=== PATIENT | female | born 1990 | race Caucasian/White ===

== ENCOUNTER 2025-04-15 16:36 | Emergency (ER) | payer BC, SELFPAY ==
--- OUTSIDE RECORDS SUMMARY | 2025-04-15 16:39 | XMS_ITS | Clinical Summary ---
Author Organization [facility] Address [address] [place] [address] Care Team Providers Care Rigger Chief Name Role Phone Elsewhere, Pcp Primary Care Provider Unavailabl e Source Comments Patient records contain information from all sites at [facility]. For routine questions regarding patient records, call [phone] during business hours, M-F 8:00 AM - 5:00 PM Central Time. Record requests for emergency care only can be directed to [phone] at any time.[facility] Allergies Active Allergy Reactions Criticality Noted Date Comments Adhesive Rash 12/22/2010 Latex Itching 03/10/2015 Medications * This document contains information received from the source organization and may not represent a complete record from that organization. naproxen sodium (ALEVE/ANAPROX) 550 mg tabletIndications: Dysmenorrhea Take 1 tablet (550 mg total) by mouth 2 (two) times a day as needed for pain. Take with food. 30 tablet 3 1 Active ibuprofen (MOTRIN) 600 mg tablet Take 600 mg by mouth 3 (three) times a day as needed. 1 Active ondansetron ODT (ZOFRAN-ODT) 4 mg disintegrating tablet Dissolve 8 mg in the mouth every 8 (eight) hours as needed. 1 Active oxyCODONE (ROXICODONE) 5 mg immediate release tablet Take 5 mg by mouth every 6 (six) hours as needed. 1 Active buPROPion XL (WELLBUTRIN XL) 150 mg 24 hr tablet Take 1 tablet (150 mg total) by mouth every morning. 90 tablet 3 4 Active albuterol 90 mcg/actuation inhaler Inhale 2 puffs every 6 (six) hours as needed for wheezing or shortness of breath. 8 g 3 4 Active lamoTRIgine (LaMICtal) 25 mg chewable tablet Take 1 tablet (25 mg total) by mouth daily. 30 tablet 4 Active dextroamphetamine- amphetamine (AdderalL) 10 mg tablet Take 1 tablet (10 mg total) by mouth daily. 30 tablet 4 Active cloNIDine (CATAPRES) 0.2 mg tablet Take 1 tablet (0.2 mg total) by mouth daily. 30 tablet 4 Active ARIPiprazole (Abilify) 2 mg tablet Take 1 tablet (2 mg total) by mouth daily. 30 tablet 4 Active Active Problems Problem Noted Date Diagnosed Date Syphilis 09/21/2023 Overview (09/21/2023): Records from [facility]: 08-11-2015 TP-PA 1:64 with rash on abdomen. 08-18-2015 PCN G 2.4 million units IM administered. Preventive Gynecological Exam 09/16/2023 Overview (09/16/2023): Pap smear: 07/23/2019 NILM/-HPV. Gonorrhea/Chlamydia Screen: Mammogram: Start at age 40. Lipid panel: 09/16/2023 obtained and pending. Diabetic screenin09/16/2023 obtained and pending. Colon screening: Begin at age 45. DEXA Scan: Begin at age 65. HPV Vaccine: Declined. Tdap Vaccine: 09/16/2023. Influenza Vaccine: Declined. - Discussed the importance of healthy diet and exercise for overall well-being. - Recommend at least 30 minutes of aerobic exercise most days of the week. - Recommend 1200 mg of calcium daily. Assessment & Plan (09/16/2023 3:11 PM STATOR WINDER): Discussed exam findings with patient. Tdap updated today. I will plan to send her a portal message with Pap and lab results. Recommend she return in 1 year for her annual preventative health exam or sooner if she is any concerns or problems. Cancer Breast Family History 10/13/2020 Overview (09/16/2023): Mom was diagnosed with breast cancer at age 39. Her Tyrer-Cuzick lifetime risk score is 20.2%. She is interested in referral to the breast Clinic to discuss genetic testing and recommended screening protocol. Galactorrhea Not Associated With Childbirth 09/23 Overview (09/16/2023): In 2018 she had normal bilateral diagnostic mammogram and ultrasound of the breast. No follow-up since. Continues to experience galactorrhea. She is very concerned as there is family history of breast cancer in her mom at age 39. Prolactin was mildly elevated in 2018, with normal prolactin level in 2019. No other lab abnormalities or cause was concluded for her likely physiologic galactorrhea. Reassured that clinical breast exam findings are normal today. Tobacco Abuse Counseling 10/13/2020 Overview (10/13/2020): Currently smoking approximately half pack per day. Tried Chantix in the past for 1 month, and did not find it helpful, but did experience vivid nightmares. Has tried nicotine patches in the past, but has allergy to adhesives. Has tried nicotine gum in the past, but can not tolerate the taste. Is on Wellbutrin, and has not found that to be helpful. Would like to try the nicotine inhaler. Prescription faxed to her pharmacy. Dysmenorrhea 10/13/2020 Overview (10/13/2020): Has been managing effectively with Mirena IUD. Due to potential side effect of decreased libido, she requested Mirena IUD removal today. I did provide her a prescription for naproxen to use as needed for menstrual pain. She will follow up as needed, or in 1 year for annual preventative health exam. Tobacco Use 07/24/2020 [facility] 07/24/2020 Migraine Headache 01/23/2018 Depression Anxiety 01/05/2017 Overview (09/16/2023): PHQ-9 score of 14 today. She is scheduled to see her therapist on September 26. Wellbutrin prescription was renewed today. She will see her psychiatrist to get the Abilify renewed if still appropriate. Stone Kidney 06/26/2014 Overview (09/12/2023): Overview: ureter stent placed fall: Massimo, awaiting removal ureter stent placed fall: Massimo, awaiting removal [facility] Personal History 10/28/2011 Resolved Problems Problem Noted Date Diagnosed Date Resolved Date Depressed Libido 10/13/2020 09/16/2023 Overview (10/13/2020): Notes that her decreased libido is affecting her relationship with her partner. She is concerned that her Mirena IUD may be affecting her libido. She is using her IUD for management of her dysmenorrhea. She has decided she would like to have the IUD removed to see if her libido improves. She has undergone tubal ligation, and therefore does not need contraception. If she does not experience improvement in her libido in the next 2-3 months, she may consider reinsertion of her IUD. She would potentially be interested in referral to the [facility] for further evaluation and management of her depressed libido. 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 Overview (01/11/2017): Deficiency Protein S Pyeloplasty Status Post 12/25/201410/2019 Urolithiasis 05/13/2014 07/24/2020 Atypical Squamous Cells Unde termined Significance Cervix 11/20/2010 01/23/2018 Overview (08/25/2017): Overview: Plan: Routine Screening Atypical Squamous Cells Unde termined Significance Cervix 11/20/2010 09/16/2023 Overview (07/24/2020): 03/16/10, 11/201012/26/10 [place]:negative (age 20) 06/11/16 NIL/HPV negative 01/05/17 NIL 07/23/19 NIL Plan: Routine Screening Immunizations Immunization Administration Dates Next Due DTP 04/01/1994, 0,02/07/1989,1988,1988 HepB Pediatric/Adolescent 03/03/1998 Influenza TIV (IM) 06/12/2012,06/08/2010 Influenza, Injectable, Quadrivalent 08/11/2015,1 08/25/2013 Influenza, Seasonal, Injectable 06/12/2012,06/08 Influenza, Unspecified 08/02/2019,06/12/2012 Polio, Unspecified 04/01/1994, 0,1988,1988 Tdap 09/16/2023,06/12/2012,12/22/2010 influenza vaccine quad (FLUZONE/FLUARIX) (6 months and older)(PF) 08/11/2020,08/02/2019,08/11/2015,2013 Family History Medical History Relation Name Comments No Known Problems Brother Adopted Daughter 1 Adpoted Out Anxiety disorder Daughter 2 Taralyn Depression Daughter 2 Taralyn No Known Problems Daughter 3 Dorcas Diabetes Father Heart disease Father Kidney disease Father Stroke Father Lung cancer Maternal Grandfather Cancer Maternal Grandmother Anxiety disorder Mother Breast cancer Mother Depression Mother Drug abuse Mother sober 2-3 years Prostate cancer Paternal Grandfather No Known Problems Sister ODD Son Caleb PTSD Son Caleb Relation Name Status Comments Brother Alive Daughter 1 Alive Daughter 2 Taralyn Alive Daughter 3 Dorcas Alive Father Alive Maternal Grandfather Maternal Grandmother Mother Alive Paternal Grandfather Alive Paternal Grandmother Alive Sister Alive Son Caleb Alive Social History Tobacco Use Types Packs/Day Years Used Date Smoking Tobacco: Every Day Cigarettes Smokeless Tobacco: Never Tobacco Cessation:Ready to Q uit: Not Asked; Counseling Given: Not Answered Comments:Trying to quit Alcohol Use Standard Drinks/Week Comments Yes 2 (1 standard drink = 0.6 oz pur e alcohol) Social Consumption Humiliation, Afraid, Rape, and Kick questionnair e Answer Date Recorded Within the last year, have y ou been afraid of your partner or ex-partner? No 07/24/2020 Within the last year, have y ou been humiliated or emotionally abused in other ways by your partner or ex-partner? No Within the last year, have y ou been kicked, hit, slapped, or otherwise physically hurt by your partner or ex-partner? No 07/24/2020 Within the last year, have y ou been raped or forced to have any kind of sexual activity by your partner or ex-partner? No 07/24/2020 Hunger Vital Sign Answer Date Recorded Within the past 12 months, y ou worried that your food would run out before you got the money to buy more. Never true 07/24/20 20 Within the past 12 months, t he food you bought just didn't last and you didn't have money to get more. Never true 07/24/2020 PRAPARE - Transportation Answer Date Re corded In the past 12 months, has l ack of transportation kept you from medical appointments or from getting medications? No 10/2019 In the past 12 months, has l ack of transportation kept you from meetings, work, or from getting things needed for daily living? No 07/24/2020 Depression Answer Date Recor ded PHQ-9 Total Score (max 27) 14 09/16 Education Answer Date Recorded What is the highest level of school you have completed or the highest degree you have received? 11th grade 07/24/2020 Comments No Sex and Gender Information Value Date Recorded Sex Assigned at Female 08/25/2017 8:44 AM STATOR WINDER Legal Sex Female 7:46 PM STATOR WINDER Gender Identity Female 08/25/2017 8:44 AM STATOR WINDER Sexual Orientation Bisexual 08/25/2017 8: 44 AM STATOR WINDER Occupation Industry Job Start Date Job End Date Housekeeping Not on file Not on file Not on file Last Filed Vital Signs Vital Sign Reading Time Taken Comments Blood Pressure 140/80 09/16/2023 2:02 PM STATOR WINDER Pulse 64 07/24/2020 11:00 AM STATOR WINDER Temperature 36 C (96.8 F) 07/24/2020 11:00 AM STATOR WINDER Respiratory Rate 16 01/23/2018 10:48 AM CDT Oxygen Saturation - - Inhaled Oxygen Concentration - - Weight 82.3 kg (181 lb 7 oz) 09/16/2023 2:02 PM STATOR WINDER Height 163 cm (5' 4.17) 09/16/2023 2:02 PM STATOR WINDER Body Mass Index 30.98 09/16/2023 2:02 PM STATOR WINDER Plan of Treatment Health Maintenance Due Date Last Done Comments Tobacco Cessation counseling 1988 Hepatitis B Vaccines (2 of 3 - 3-dose series) 03/31/1998 03/03/1998 Pneumococcal vaccine (0-49 y ears) (1 of 2 - PCV) 2007 HPV Vaccines (1 - 3-dose SCD M series) 2015 COVID-19 Vaccine (3 - 2023-2 5 season) 2024 02/02/2021, 01/12/2021 Depression Screening (Annual PHQ-2) 08/22/2024 Glucose Test for Med Monitoring 09/16/2024 09/16/2023, 09/16/2023, 04/27/2023, Additional history exists Influenza Vaccine (#1) 2025 , 08/02/2019, 08/02/2019, Additional history exists Cervical/Vaginal Cancer Screening 09/16/2028 09/16/2023, 09/16/2023, 07/23/2019, Additional history exists Lipid (Cholesterol) Screening 09/16/2028 09/16/2023, 02/01/2018 DTaP,Tdap,and Td Vaccines (9 - Td or Tdap) 09/16/2033 09/16/2023, 06/12/2012, 12/22/2010, Additional history exists IPV Vaccines Completed 04/01/1994, 02/19, 1988, Additional history exists HIV Screening Completed 09/16/2023, 12/20, 05/31/2012 Medical Devices Implanted Type Area [employer]ale [employer] Device Identifier Shelf Expiration Date Model / Serial / Lot Stent Inlay 7fr X 24cm - Shrestha [id number] Implanted:Qty: 1 on 05/14/2014 Ureteral Stent C.R.Bard Description:Device Manufactu [facility] - [facility] Patient Care Division. Device Status Text - [id number]. Stent Inlay 8fr X 24cm - Shrestha [id number] Implanted:Qty: 1 on 08/18/2014 Ureteral Stent C.R.Bard Description:Device Manufactu rer - [employer] Patient Care Division. Device Status Text - [id number]. [facility] Data - [id number]. Stent Uret Dbl. J 7 X 26 - Shrestha [id number] Implanted:Qty: 1 on 12/09/2014 Ureteral Stent Other/Legacy - See Implant Description Description:Device Manufactu rer - [employer]. Device Status Text - [id number]. Explanted Type Area Shale Miner Blasting Device Identifier Shelf Expiration Date Model / Serial / Lot Intrauterine Device- 7 Implanted:01/12 (Quantity not on file) Explanted:Qty: 1 on 10/13/2020 by Umm Gibbs APRN C.N.PLori Intrauterine Device Uterus Description:Mirena IUD remov ed due to depressed libido. Conversions - Default Historical Implant Device - Shrestha [id number] Explanted:12/06 (Quantity not on file) Ureteral Stent Description:Device Status Te xt - [id number]. Conversions - Default Historical Implant Device - Shrestha [id number] Explanted:12/06 (Quantity not on file) Ureteral Stent Description:Device Status Te xt - [id number]. Procedures Procedure Name Priority Date/Time Associated Diagnosis Comments HIV-1/-2 AG AND AB SCREEN, PLASMA Routine 09/16/2023 3:35 PM STATOR WINDER Preventive Gynecological Exam LIPID PANEL, S Routine 09/16/2023 3:35 PM STATOR WINDER Preventive Gynecological Exam HEMOGLOBIN A1C, B Routine 09/16/2023 3:3 5 PM STATOR WINDER Preventive Gynecological Exam HPV WITH GENOTYPING, PCR, THINPREP Routine 09/16/2023 2:49 PM STATOR WINDER from Last 3 Months or Most Recently Relevant to Health Maintenance Results * HIV-1/-2 Ag and Ab Screen, Plasma (09/16/2023 3:35 PM STATOR WINDER) HIV Ag/Ab Screen, P Negative Negative 09/19/2023 9:30 PM STATOR WINDER [facility] Comment: Negative result does not rule out HIV infection. If exposure to HIV infection occurred <14 days ago, contact the laboratory to request addition of HIV-1/HIV-2 RNA detection, Plasma (HIP12). HIV-1 p24 Ag Screen, P Negative Negative 09/19/2023 9:30 PM STATOR WINDER [facility] Comment: Negative result does not rule out HIV infection. If exposure to HIV infection occurred <14 days ago, contact the laboratory to request addition of HIV-1/HIV-2 RNA detection, Plasma (HIP12). HIV-1 Ab Screen, P Negative Negative 09/19/2023 9:30 PM STATOR WINDER [facility] Comment: Negative result does not rule out HIV infection. If exposure to HIV infection occurred <14 days ago, contact the laboratory to request addition of HIV-1/HIV-2 RNA detection, Plasma (HIP12). HIV-2 Ab Screen, P Negative Negative 09/19/2023 9:30 PM STATOR WINDER [facility] Comment: Negative result does not rule out HIV infection. If exposure to HIV infection occurred <14 days ago, contact the laboratory to request addition of HIV-1/HIV-2 RNA detection, Plasma (HIP12). Blood (Blood, Venous) 09/16/2023 3:35 PM STATOR WINDER 09/17/2023 5:30 PM STATOR WINDER Umm Gibbs APRN, C.N.P. LAB MICROBIOLOGY - BLOOD ORDERABLES Final Result [facility] [address] [place] [id number], [facility] [place] [address] * Lipid Panel (09/16/2023 3:35 PM STATOR WINDER) Triglycerides 49 mg/dL 09/16/2023 6:34 PM STATOR WINDER OWAT Comment: ----REFERENCE VALUE---- Normal: <150 mg/dL Borderline High: 150-199 mg/dL High: 200-499 mg/dL Very High: > or =500 mg/dL Cholesterol, Total 139 mg/dL 2023 6:34 PM STATOR WINDER OWAT Comment: ----REFERENCE VALUE---- Desirable: < 200 mg/dL Borderline High: 200 - 239 mg/dL High: > or = 240 mg/dL Cholesterol, LDL, Calculated 65 mg/dL 09/16/2023 6:34 PM STATOR WINDER OWAT Comment: ----REFERENCE VALUE---- Desirable: <100 mg/dL Above Desirable: 100-129 mg/dL Borderline High: 130-159 mg/dL High: 160-189 mg/dL Very High: >=190 mg/dL ----ADDITIONAL INFORMATION---- LDL cholesterol calculated using the Craig/NIH equation. Cholesterol, HDL 63 >=50 mg/dL 09/16/19 6:34 PM STATOR WINDER OWAT Cholesterol, Non-HDL, Calculated 76 mg/dL 09/16/2023 6:34 PM STATOR WINDER OWAT Comment: ----REFERENCE VALUE---- Desirable: <130 mg/dL Above Desirable: 130-159 mg/dL Borderline High: 160-189 mg/dL High: 190-219 mg/dL Very High: > or =220 mg/dL Fasting (8 HR or more) Yes 09/16/2023 5:42 PM STATOR WINDER OWAT Blood (Blood, Venous) 09/16/2023 3:35 PM STATOR WINDER 09/16/2023 5:42 PM STATOR WINDER us Umm Gibbs APRN, C.N.P. LAB BLOOD ADD-ON Final Result Performing Organization Address City/[facility]/ZIP Co de Phone Number [facility] [address] [place] [address], [place] AT [facility] [place] [address] [place] [address] * Hemoglobin A1c (09/16/2023 3:35 PM STATOR WINDER) Hemoglobin A1c, B 5.0 4.2 - 5.6 % 09/16/2023 6:34 PM STATOR WINDER OWAT Blood (Blood, Venous) 09/16/2023 3:35 PM STATOR WINDER 09/16/2023 5:42 PM STATOR WINDER us Umm Gibbs APRN, C.N.P. LAB BLOOD ADD-ON Final Result Performing Organization Address City/[facility]/ZIP Co de Phone Number [facility] [address] [place] [address], [place] OW[place] [facility] [place] [address] [place] [address] * HPV with Genotyping, PCR, ThinPrep (09/16/2023 2:49 PM STATOR WINDER) HPV with Genotyping, ThinPrep, PCR Negative Negative 09/19/2023 4:40 PM STATOR WINDER [facility] Comment: Negative for high risk HPV by nucleic acid amplification. The following high risk HPV types were not detected: 16, 18, 31, 33, 35, 39, 45, 51, 52, 56, 58, 59, 66, and 68 This result does not rule out HPV in the patient, as the sensitivity of the test depends on the timing of the specimen collection and the quality of the specimen. Result should be correlated with patient's history, clinical presentation, and EDUCATION DIAGNOSTICIAN cytology report. 09/16/2023 2:49 PM STATOR WINDER 09/19/2023 7:08 AM STATOR WINDER us Umm Gibbs APRN CLoriNLoriP. LAB MICROBIOLOGY - GENERAL ORDERABLES Final Result [facility] [address] [id number], [facility] [address] [id number] from Last 3 Months or Most Recently Relevant to Health Maintenance Insurance [facility] [place] [phone] Care Teams Rigger Chief Relationship Specialty Start Date End Date Elsewhere, Pcp PCP - General Family Medicine 07/24/20
[2025-04-15 16:40] VITALS: BP 143/89; PULSE 92; RESP 20; TEMP 36.8; O2SAT 98; BMI 34.1
--- NOTE | 2025-04-15 17:34 | ED.NURSE ---
Attempted to place pt in room. Pt nowhere to be found. ED registration did not report seeing pt leave.
--- OUTSIDE RECORDS SUMMARY | 2025-04-16 18:45 | XMS_ITS | Clinical Summary ---
Author Organization [employer] [facility] Address [address] [place] [address] Care Team Providers Care Range Conservationist Name Role Phone [facility], [employer] [facility] v[facility] Allergies Active Allergy Reactions Criticality Noted Date Comments Adhesive Rash 12/22/2010 Latex Itching 03/10/2015 Medications albuterol HFA (PRO-AIR) 90 mcg/actuation inhalerIndicatio ns:SOB (shortness of breath) Inhale 1-2 Puffs by mouth every 4 hours if needed. 1 Each 3 0 Active ibuprofen (ADVIL; MOTRIN) 600 mg tabletIndication s:Right flank pain Take 1 Tablet (600 mg) by mouth 3 times daily if needed for Pain. Maximum of 3200 mg in 24 hours. 20 Tablet 1 Active ARIPiprazole (ABILIFY) 2 mg tablet Take 2 mg by mouth. 4 Active buPROPion (WELLBUTRIN XL) 150 mg Extended-Release tablet Take 150 mg by mouth. 4 Active cloNIDine HCL (CATAPRES) 0.2 mg tablet Take 0.2 mg by mouth. 4 Active dextroamphetamin e-amphetamine (ADDERALL) 10 mg tablet Take 10 mg by mouth. 4 Active lamoTRIgine (LAMICTAL FOR SUSP) 25 mg chewable dispersible tablet Take 25 mg by mouth. 4 Active metroNIDAZOLE (FLAGYL) 500 mg tablet TAKE ONE TABLET BY MOUTH TWICE A DAY FOR 7 DAYS DO NOT CONSUME ALCOHOL WHILE TAKING THIS MEDICATION 4 Active famotidine (PEPCID) 20 mg tabletIndication s:Gastroesophage al reflux disease, unspecified whether esophagitis present Take 1 Tablet (20 mg) by mouth two times daily. 60 Tablet 4 Active Active Problems Problem Noted Date Diagnosed Date Anxiety 12/03/2014 Rectal bleeding 07/07/2014 Pain medication agreement 06/26/2014 Overview (07/31/2014): Violated 7:04 PM Jul 31 2014. Pt given letter in ER regarding chronic pain policy . Pt will need to see PCP for pain control. 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 13 Overview (01/29/2013): following post- gallbladder surgery ASCUS with positive high risk HPV cervical 11/20 Overview (08/03/2019): 03/16/10, 11/201012/26/10 [place]:negative (age 20) 06/11/16 NIL/HPV negative 01/05/17 NIL 07/23/19 NIL Plan: Routine Screening Attention deficit disorder without mention of hy peractivity 07/20/2006 Protein S deficiency Resolved Problems Problem Noted Date Diagnosed Date Resolved Date Other pulmonary embolism and infarction 12/07/2012 12/19/2012 Anticoagulation monitoring, INR range 2-3 12/07/2012 01/29/2013 Immunizations Immunization Administration Dates Next Due DTP 04/01/1994, 0,02/07/1989,1988,1988 Hepatitis B (Peds) 03/03/1998 Influenza, IIV3 (Age >=3 years) 06/12/2012,06/08 Influenza, IIV4 08/02/2019,08/11/2015,06/25/2014 MMR 12/07/2012,03/03/1998,03/01/1990 Oral Polio Vaccine 04/01/1994, 0,1988,1988 Pneumococcal Poly,23-Valent (Pneumovax) 02/26/2011 Tdap 06/12/2012,12/22/2010 Family History Medical History Relation Name Comments Diabetes Father Stroke Father Cancer Maternal Grandfather Other Mother MS Diabetes Other 1 AUNT Cancer Other 2 LYMPHOMA GRANMO THER Cancer-prostate Other 3 GRANDFATHER Cancer Paternal Grandfather Relation Name Status Comments Brother Alive Daughter 1 Alive Daughter 2 Alive Daughter 3 Alive Father Alive Maternal Grandfather Maternal Grandmother Mother Alive Other 1 Other 2 Other 3 Paternal Grandfather Alive Paternal Grandmother Alive Sister Alive Son Alive Social History Tobacco Use Types Packs/Day Years Used Date Smoking Tobacco: Every Day Cigarettes Smokeless Tobacco: Never Tobacco Cessation:Ready to Q uit: Yes; Counseling Given: Yes Comments:also used e cig Alcohol Use Standard Drinks/Week Comments Yes 0 (1 standard drink = 0.6 oz pur e alcohol) Wine. 0-2 per month PHQ-2 Answer Date Recorded PHQ-2 TOTAL SCORE 0 08/04/2020 Social Connections Answer Date Recorded Frequency of Communication with Friends and Fami ly Not on file 08/22/2021 Financial Resource Strain Answer Date R ecorded Difficulty of Paying Living Expenses Not on file 08/22/2021 Difficulty of Paying Living Expenses Not on file 08/22/2021 Interpersonal Safety Answer Date Record ed Are you being hit, kicked, p ushed or yelled at (see row info)? No 07/23/2024 Interpersonal Safety Abuse 12 - 18 Not on file 07/23/2024 Interpersonal Safety Ambulatory Vulnerability No t on file 07/23/2024 Comments No Sex and Gender Information Value Date Recorded Sex Assigned at Not on file Legal Sex Female 5:23 AM BUILD AND RELEASE MANAGER Gender Identity Not on file Sexual Orientation Not on file Occupation Industry Job Start Date Job End Date home Not on file Not on file Not on file Obstetrics History Para Term AB IAB SAB Ectopic Multiple Livin g Live Births 5 4 4 1 1 4 1 Date Outcome GA Total Labor Labor/2nd/3rd Weight Sex Type Anes PTL Merly A1 A5 Name Clin Term Comments:System Genera yong. Please review and update details. Term Comments:System Genera yong. Please review and update details. SAB 006 Term 40w 0d 6h 00m/ 2.86 kg (6 lb 5 oz) F Vag Livin g tiff 008 Term 40w 0d 3.18 kg (7 lb) F Vag Comments:mild PIH Last Filed Vital Signs Vital Sign Reading Time Taken Comments Blood Pressure 115/55 07/23/2024 1:30 AM BUILD AND RELEASE MANAGER Pulse 91 07/23/2024 1:30 AM BUILD AND RELEASE MANAGER Temperature 36.6 C (97.8 F) 07/23/2024 12:08 AM BUILD AND RELEASE MANAGER Respiratory Rate 23 07/23/2024 12:45 AM BUILD AND RELEASE MANAGER Oxygen Saturation 98% 07/23/2024 1:30 AM BUILD AND RELEASE MANAGER Inhaled Oxygen Concentration - - Weight 100.2 kg (221 lb) 07/23/2024 12:08 AM BUILD AND RELEASE MANAGER Height 162.6 cm (5' 4) 07/23/2024 12:08 AM BUILD AND RELEASE MANAGER Body Mass Index 37.93 07/23/2024 12:08 AM BUILD AND RELEASE MANAGER Plan of Treatment Health Maintenance Due Date Last Done Comments Hepatitis B series for 19+ ( 2 of 3 - 3-dose series) 03/31/1998 03/03/1998 Hepatitis C screening for ag e 18-79 2006 Pneumococcal series for age 6-49 (2 of 2 - PCV) 02/27/2012 02/26/2011 BMI (ht and wt on same day) for age 18+ 08/04/2021 08/04/2020, 08/02/2019, 07/22/2019, Additional history exists Depression screening for age 12+ 08/04/2021 08/04/2020, 08/02/2019, 08/02/2019, Additional history exists Tetanus booster 06/12/2022 06/12/2012, 12/22/2010 Pap test for age 21-65 07/23/2022 9, 06/21/2016, 06/21/2016, Additional history exists COVID-19 vaccine series ( season) 2024 02/02/2021, 01/12/2021 Influenza Vaccine (#1) 2025 9, 08/11/2015, 06/25/2014, Additional history exists HIV for age 15-65 Completed 08/11/2015, 03/03/2007 Medical Devices Implanted Type Area [employer] Device Identifier Shelf Expiration Date Model / Serial / Lot Stent Contour [id number] Uret - [id number] Implanted:Qty: 1 on 01/29/2014 by Gabe Blood MD at [facility] Right: [facility] [facility] [place] [facility] 10/20/2016 [id number] / / [id number] Procedures Procedure Name Priority Date/Time Associated Diagnosis Comments MANAGEMENT AND BUDGET ANALYST THIN PREP PAP SCREEN IMAGED Routine 07/23/2019 8:40 AM BUILD AND RELEASE MANAGER Screening for malignant neoplasm of cervix ANTI HIV 1/2 Routine 08/11/2015 11:47 AM BUILD AND RELEASE MANAGER Routine screening for STI (sexually transmitted infection) from Last 3 Months or Most Recently Relevant to Health Maintenance Results * MANAGEMENT AND BUDGET ANALYST THIN PREP PAP SCREEN IMAGED (07/23/2019 8:40 AM BUILD AND RELEASE MANAGER) Case Report Gynecologic Cytology Report Case: [id number] Authorizing Provider: Charlene Washington PA Collected: 07/23/2019 0840 Ordering Location: [facility] Received: 07/23/2019 1015 Clinic First Screen: Maxi Diaz Rescreen: Sylwia Lantigua Specimen: MANAGEMENT AND BUDGET ANALYST ThinPrep Vial Screening, Cervical 08/02/2019 10:17 AM BUILD AND RELEASE MANAGER [facility] INTERPRETATION/ RESULT NEGATIVE FOR INTRAEPITHELIAL LESION OR MALIGNANCY (NIL) (none) 08/02/2019 10:17 AM BUILD AND RELEASE MANAGER [facility] at 1017 BUILD AND RELEASE MANAGER SPECIMEN ADEQUACY Satisfactory for evaluation Endocervical component present 08/02/2019 10:17 AM BUILD AND RELEASE MANAGER [facility] HPV REQUEST HPV if ASCUS 08/02/2019 10:17 AM BUILD AND RELEASE MANAGER [facility] Date of LMP 2 months ago. 08/02/2019 10:17 AM BUILD AND RELEASE MANAGER [facility] Last Pap Date 06/21/16 08/02/2019 10:17 AM BUILD AND RELEASE MANAGER [facility] Last Pap Result NIL 9 10:17 AM BUILD AND RELEASE MANAGER [facility] Abnormal Pap or [place] Bx in last 5 years Yes 08/02/2019 10:17 AM [facility] Menstrual Status Irregular Periods 08/02/2019 10:17 AM [facility] [place] Bx Done Today No 08/02/2019 10:17 AM [facility] Additional Information None given 08/02/2019 10:17 AM [facility] Automated Review Successful 08/02/2019 10:17 AM [facility] Comment:Specimen processed s uccessfully by automated baker device, ThinPrep Imaging System, [employer] Note The pap test is a screening technique, not a diagnostic procedure. It is used primarily to screen for squamous cancers and precursor lesions. Published studies have shown that it is subject to both false negative and false positive results. The pap test should not be used as the sole means to diagnose or exclude pre-malignant and malignant lesions. Cytology is screened and interpreted at [facility] - [address], [place] [address] and [facility] - [address]; [place] [address] and [facility] - [address]; [place] [address] and [facility] [address]; [place] [address] 08/02/2019 10:17 AM [facility] Other (Cervical) Non-Blood / Unknown 07/23/2019 8:40 AM BUILD AND RELEASE MANAGER 07/23/2019 10:15 AM BUILD AND RELEASE MANAGER Comment:Patient unaware of d ate of period due to IUD us Charlene DUNCAN PATHOLOGY/CYTOLOGY Final R esult [facility] [address] [place] [address], * ANTI HIV 1/2 (08/11/2015 11:47 AM BUILD AND RELEASE MANAGER) HIV-1/HIV-2 ANTIBODY Non-Reacti ve Non-Reacti ve 08/11/2015 8:[address] [facility] Blood specimen (specimen) BLOOD SPECIMEN / Unknown Venipuncture / Unknown 08/11/2015 11:47 AM BUILD AND RELEASE MANAGER 08/11/2015 11:47 AM BUILD AND RELEASE MANAGER Narrative [facility] - 08/11/2015 8:11 PM BUILD AND RELEASE MANAGER HIV-1 p24 and HIV-1/HIV-2 Ab not detected us Charlene Porter MD SEND OUTS Final Re sult [facility] [address] [place] [address], [place] from Last 3 Months or Most Recently Relevant to Health Maintenance Insurance [place] [address] [place] [address] [facility] [place] [id number] [place] [id number] [place] [employer] DEPT [id number] [facility] Advance Directives * Full Code (Latest Code Status on File) Date Activated Date Inactivated Comments 01/29/2014 9:04 AM 01/29/2014 5:11 PM Care Teams Range Conservationist Relationship Specialty Start Date End Date Clinic, [facility] [address] [facility] [place] [address] PCP - General 04/10/21
--- OUTSIDE RECORDS SUMMARY | 2025-04-16 18:45 | XMS_ITS | Clinical Summary ---
Author Organization [facility] Address [address] [place] [address] Care Team Providers Care Security Manager Name Role Phone Elsewhere, Pcp Primary Care Provider Unavailabl e Source Comments Patient records contain information from all sites at [facility]. For routine questions regarding patient records, call [phone] during business hours, M-F 8:00 AM - 5:00 PM Central Time. Record requests for emergency care only can be directed to [phone] at any time.[facility] Allergies Active Allergy Reactions Criticality Noted [...] Date Syphilis 09/21/2023 Overview (09/21/2023): Records from [facility]: 08-11-2015 TP-PA 1:64 with rash on abdomen. [...] daily. Assessment & Plan (09/16/2023 3:11 PM WATER INSPECTOR): Discussed exam findings with patient. Tdap updated [...] Cervix 11/20/2010 09/16/2023 Overview (07/24/2020): 03/16/10, 11/201012/26/10 [place]:negative (age 20) 06/11/16 NIL/HPV negative 01/05/17 NIL [...] Sex Assigned at Female 08/25/2017 8:44 AM WATER INSPECTOR Legal Sex Female 7:46 PM WATER INSPECTOR Gender Identity Female 08/25/2017 8:44 AM WATER INSPECTOR Sexual Orientation Bisexual 08/25/2017 8: 44 AM WATER INSPECTOR Occupation Industry Job Start Date Job End Date Housekeeping Not on file Not on file Not on file Last Filed Vital Signs Vital Sign Reading Time Taken Comments Blood Pressure 140/80 09/16/2023 2:02 PM WATER INSPECTOR Pulse 64 07/24/2020 11:00 AM WATER INSPECTOR Temperature 36 C (96.8 F) 07/24/2020 11:00 AM WATER INSPECTOR Respiratory Rate 16 01/23/2018 10:48 AM CDT Oxygen Saturation - - Inhaled Oxygen Concentration - - Weight 82.3 kg (181 lb 7 oz) 09/16/2023 2:02 PM WATER INSPECTOR Height 163 cm (5' 4.17) 09/16/2023 2:02 PM WATER INSPECTOR Body Mass Index 30.98 09/16/2023 2:02 PM WATER INSPECTOR Plan of Treatment Health Maintenance Due Date [...] 12/20, 05/31/2012 Medical Devices Implanted Type Area Supervisor Inspection Department Device Identifier Shelf Expiration Date Model / Serial / Lot Stent Inlay 7fr X 24cm - Shrestha [id number] Implanted:Qty: 1 on 05/14/2014 Ureteral Stent [employer] Description:Device Manufactu page hospital - [employer] Patient Care Division. Device Status Text - [id number]. Stent Inlay 8fr X 24cm - Shrestha [id number] Implanted:Qty: 1 on 08/18/2014 Ureteral Stent [employer]Bard Description:Device Manufactu rer - [employer] Patient Care Division. Device Status Text - [id number]. [facility] Data - [id number]. Stent Uret Dbl. J 7 X 26 - Shrestha [id number] Implanted:Qty: 1 on 12/09/2014 Ureteral Stent Other/Legacy - See Implant Description Description:Device Manufactu rer - [employer]. Device Status Text - [id number]. Explanted Type Area Supervisor Inspection Department Device Identifier Shelf Expiration Date Model / Serial / Lot Intrauterine Device- 7 Implanted:01/12 (Quantity not on file) Explanted:Qty: 1 on 10/13/2020 by Umm Gibbs APRN C.N.PLori Intrauterine Device Uterus Description:Mirena IUD remov ed due to depressed libido. Conversions - Default Historical Implant Device - Shrestha [id number] Explanted:12/06 (Quantity not on file) Ureteral Stent Description:Device Status Te xt - [id number]. Conversions - Default Historical Implant Device - Shrestha [id number] Explanted:12/06 (Quantity not on file) Ureteral Stent Description:Device Status Te xt - [id number]. Procedures Procedure Name Priority Date/Time Associated Diagnosis Comments HIV-1/-2 AG AND AB SCREEN, PLASMA Routine 09/16/2023 3:35 PM WATER INSPECTOR Preventive Gynecological Exam LIPID PANEL, S Routine 09/16/2023 3:35 PM WATER INSPECTOR Preventive Gynecological Exam HEMOGLOBIN A1C, B Routine 09/16/2023 3:3 5 PM WATER INSPECTOR Preventive Gynecological Exam HPV WITH GENOTYPING, PCR, THINPREP Routine 09/16/2023 2:49 PM WATER INSPECTOR from Last 3 Months or Most Recently Relevant to Health Maintenance Results * HIV-1/-2 Ag and Ab Screen, Plasma (09/16/2023 3:35 PM WATER INSPECTOR) HIV Ag/Ab Screen, P Negative Negative 09/19/2023 9:30 PM WATER INSPECTOR [facility] Comment: Negative result does not rule out HIV infection. If exposure to HIV infection occurred <14 days ago, contact the laboratory to request addition of HIV-1/HIV-2 RNA detection, Plasma (HIP12). HIV-1 p24 Ag Screen, P Negative Negative 09/19/2023 9:30 PM WATER INSPECTOR [facility] Comment: Negative result does not rule out HIV infection. If exposure to HIV infection occurred <14 days ago, contact the laboratory to request addition of HIV-1/HIV-2 RNA detection, Plasma (HIP12). HIV-1 Ab Screen, P Negative Negative 09/19/2023 9:30 PM WATER INSPECTOR [facility] Comment: Negative result does not rule out HIV infection. If exposure to HIV infection occurred <14 days ago, contact the laboratory to request addition of HIV-1/HIV-2 RNA detection, Plasma (HIP12). HIV-2 Ab Screen, P Negative Negative 09/19/2023 9:30 PM WATER INSPECTOR [facility] Comment: Negative result does not rule out HIV infection. If exposure to HIV infection occurred <14 days ago, contact the laboratory to request addition of HIV-1/HIV-2 RNA detection, Plasma (HIP12). Blood (Blood, Venous) 09/16/2023 3:35 PM WATER INSPECTOR 09/17/2023 5:30 PM WATER INSPECTOR Umm Gibbs APRN, C.N.P. LAB MICROBIOLOGY - BLOOD ORDERABLES Final Result [facility] [address] [place] [id number], [facility] [place] [address] * Lipid Panel (09/16/2023 3:35 PM WATER INSPECTOR) Triglycerides 49 mg/dL 09/16/2023 6:34 PM WATER INSPECTOR OWAT Comment: ----REFERENCE VALUE---- Normal: <150 mg/dL Borderline High: 150-199 mg/dL High: 200-499 mg/dL Very High: > or =500 mg/dL Cholesterol, Total 139 mg/dL 2023 6:34 PM WATER INSPECTOR OWAT Comment: ----REFERENCE VALUE---- Desirable: < 200 mg/dL Borderline High: 200 - 239 mg/dL High: > or = 240 mg/dL Cholesterol, LDL, Calculated 65 mg/dL 09/16/2023 6:34 PM WATER INSPECTOR OWAT Comment: ----REFERENCE VALUE---- Desirable: <100 mg/dL Above Desirable: 100-129 mg/dL Borderline High: 130-159 mg/dL High: 160-189 mg/dL Very High: >=190 mg/dL ----ADDITIONAL INFORMATION---- LDL cholesterol calculated using the Craig/NIH equation. Cholesterol, HDL 63 >=50 mg/dL 09/16/19 6:34 PM WATER INSPECTOR OWAT Cholesterol, Non-HDL, Calculated 76 mg/dL 09/16/2023 6:34 PM WATER INSPECTOR OWAT Comment: ----REFERENCE VALUE---- Desirable: <130 mg/dL Above Desirable: 130-159 mg/dL Borderline High: 160-189 mg/dL High: 190-219 mg/dL Very High: > or =220 mg/dL Fasting (8 HR or more) Yes 09/16/2023 5:42 PM WATER INSPECTOR OWAT Blood (Blood, Venous) 09/16/2023 3:35 PM WATER INSPECTOR 09/16/2023 5:42 PM WATER INSPECTOR us Umm Gibbs APRN, C.N.P. LAB BLOOD ADD-ON Final Result Performing Organization Address City/[facility]/ZIP Co de Phone Number [facility] [address] [place] [address], [place] AT [facility] [place] [address] [place] [address] * Hemoglobin A1c (09/16/2023 3:35 PM WATER INSPECTOR) Hemoglobin A1c, B 5.0 4.2 - 5.6 % 09/16/2023 6:34 PM WATER INSPECTOR OWAT Blood (Blood, Venous) 09/16/2023 3:35 PM WATER INSPECTOR 09/16/2023 5:42 PM WATER INSPECTOR us Umm Gibbs APRN, C.N.P. LAB BLOOD ADD-ON Final Result Performing Organization Address City/[facility]/ZIP Co de Phone Number [facility] [address] [place] [address], [place] OWAT [facility] [place] [address] [place] [address] * HPV with Genotyping, PCR, ThinPrep (09/16/2023 2:49 PM WATER INSPECTOR) HPV with Genotyping, ThinPrep, PCR Negative Negative 09/19/2023 4:40 PM WATER INSPECTOR [facility] Comment: Negative for high risk HPV [...] correlated with patient's history, clinical presentation, and REGISTERED PUBLIC SURVEYOR cytology report. 09/16/2023 2:49 PM WATER INSPECTOR 09/19/2023 7:08 AM WATER INSPECTOR us Umm Gibbs APRN CLoriNLoriP. LAB MICROBIOLOGY - GENERAL ORDERABLES Final Result [facility] [address] [id number], [facility] [address] [address] from Last 3 Months or Most Recently Relevant to Health Maintenance Insurance [facility] [place] [phone] Care Teams Security Manager Relationship Specialty Start Date End Date Elsewhere, Pcp PCP - General Family Medicine 07/24/20
== END 2025-04-15 17:36 | disposition left against medical advice (07) ==
LOC: ED 04-16 18:43
PROVIDERS: Emergency Provider Emergency Medicine Emergency Medical Services
DX: Z53.21 Procedure and treatment not carried out due to patient leaving prior to being seen by health care provider (principal)
CPT/HCPCS: 99281